=== PATIENT | female | born 1995 | race Caucasian/White ===

== ENCOUNTER 2019-11-26 09:06 | Outpatient (CLI) | payer BC, OTHER | END 2019-11-26 23:59 | disposition home or self-care (01) | LOC: STAR 09:06 | PROVIDERS: ATTEND Obstetrics & Gynecology | DX: Z01.812 Encounter for preprocedural laboratory examination (principal); Z20.828 Contact with and (suspected) exposure to other viral communicable diseases | CPT/HCPCS: 36415; 87635 ==

== ENCOUNTER 2019-12-03 16:25 | Inpatient (IN) | payer BC, OTHER ==
[~2019-12-03] VITALS: Ht 160 cm; Wt 70.9 kg
[2019-12-04] MEDS ORDERED: OXYTOCIN 30U/ 0.9% NaCL 500ML 500 ML ONE (21:43)
[2019-12-04] MEDS ORDERED: LIDOCAINE 1%, 20ML ONE (21:44)
[2019-12-04] MEDS ORDERED: MISOPROSTOL 200 MCG TABLET ONE (21:45)
[2019-12-04] MEDS ORDERED: NEWBORN KIT ONE (21:45)
[2019-12-04] MEDS ORDERED: OXYTOCIN 30U/ 0.9% NaCL 500ML 500 ML IV PRN (21:55)
[2019-12-04] MEDS ORDERED: OXYTOCIN 30U/ 0.9% NaCL 500ML 500 ML IV ONE (21:55)
[2019-12-04] MEDS ORDERED: FENTANYL PF 100 MCG/2ML IVPush PRN (22:00)
[2019-12-04] MEDS ORDERED: SODIUM CITRATE/CITRIC ACID 30 ML UDC PO PRN (22:00)
[2019-12-04] MEDS ORDERED: SODIUM CHLORIDE FLUSH 10ML SYR IVF PRN (22:00)
[2019-12-04] MEDS ORDERED: TERBUTALINE 1 MG/ML, 1ML IVPush PRN (22:00)
[2019-12-04] MEDS ORDERED: MISOPROSTOL 25 MCG TABLET VG PRN (22:00)
[2019-12-04] MEDS ORDERED: ONDANSETRON 2MG/ML, 2ML IVPush PRN (22:00)
[2019-12-04] MEDS ORDERED: TERBUTALINE 1 MG/ML, 1ML SQ PRN (22:00)
[2019-12-04] MEDS ORDERED: ALUMINUM/MAG/SIMETHICONE 30 ML UDC PO PRN (22:00)
[2019-12-04] MEDS ORDERED: FENTANYL PF 100 MCG/2ML IV PRN (22:00)
[2019-12-04] MEDS ORDERED: METOCLOPRAMIDE 5 MG/ML, 2ML IVPush PRN (22:00)
[2019-12-04] MEDS ORDERED: PLEASE ENTER ALLERGIES MC SCH (22:30)
[2019-12-04] MEDS ORDERED: PLEASE ENTER HEIGHT AND WEIGHT MC SCH (22:30)
[2019-12-04 22:33] LABS: MEAN CORPUSCULAR HEMOGLOBIN 30.9 pg (27.0-34.8); MEAN CORPUSCULAR HGB CONC 32.7 g/dL (32.4-35.8); MEAN CORPUSCULAR VOLUME 94.7 fL (80-100); MEAN PLATELET VOLUME 8.7 fL (7.4-10.4); PLATELET COUNT 227 x10^3/uL (130-400); RED BLOOD COUNT 4.39 x10^6/uL (3.82-5.3); RED CELL DISTRIBUTION WIDTH 14.4 % (9.6-15.2)
[2019-12-04] MEDS ORDERED: PREN-1 PO (22:38)
[2019-12-04 22:58] LABS: BASOPHILS # (AUTO) 0.05 x10^3/uL (0-0.1); BASOPHILS % (AUTO) 0 % (0-1); EOSINOPHILS # (AUTO) 0.03 x10^3/uL (0-0.4); EOSINOPHILS % (AUTO) 0 % (1-7); LYMPHOCYTES % (AUTO) 18 % (22-44); MD SCAN; MONOCYTES # (AUTO) 1.41 x10^3/uL (0.2-0.8); MONOCYTES % (AUTO) 10 % (2-9); NEUTROPHILS # (AUTO) 10.28 x10^3/uL (1.8-6.8); NEUTROPHILS % (AUTO) 72 % (42-75)
[2019-12-04] MEDS ORDERED: MISOPROSTOL 25 MCG TABLET ONE (23:04)
[2019-12-05] MEDS ORDERED: MISOPROSTOL 25 MCG TABLET ONE (07:40)
[2019-12-05] MEDS ORDERED: MISOPROSTOL 200 MCG TABLET ONE (07:40)
[2019-12-05] MEDS ORDERED: FENTANYL PF 100 MCG/2ML ONE (10:57)
[2019-12-05] MEDS ORDERED: FENTANYL/BUPIV./NS/PF 250 ML EPIDCONT SCH (11:19)
[2019-12-05] MEDS ORDERED: NALOXONE 0.4 MG/ML, 1ML IVPush PRN (11:30)
[2019-12-05] MEDS ORDERED: EPHEDRINE 50 MG/ML, 1ML IVPush PRN (11:30)
[2019-12-05] MEDS ORDERED: LACTATED RINGERS 1,000 ML IVBOLUS PRN (11:30)
[2019-12-05] MEDS ORDERED: FENTANYL/BUPIV./NS/PF 250 ML EPIDCONT ONE (11:43)
[2019-12-05] MEDS ORDERED: LIDOCAINE/PF 1.5% EPI 1:200K, 10 ML ONE (11:44)
[2019-12-05] MEDS ORDERED: BUPIVACAINE 0.25% ONE (11:44)
[2019-12-05] MEDS: LACTATED RINGERS 1,000 ML IV SCH ×2 (12:50→15:44)
[2019-12-05] MEDS ORDERED: OXYTOCIN 30U/ 0.9% NaCL 500ML 500 ML ONE (13:23)
[2019-12-05] MEDS ORDERED: OXYTOCIN 30U/ 0.9% NaCL 500ML 500 ML IV PRN (13:26)
[2019-12-05] MEDS ORDERED: EPINEPHRINE 1 MG/ML, 1ML ONE (19:02)
[2019-12-06] MEDS ORDERED: METOCLOPRAMIDE 5 MG/ML, 2ML ONE (07:03)
[2019-12-06] MEDS ORDERED: DIPHENHYDRAMINE 50 MG/ML, 1ML ONE (07:30)
[2019-12-06] MEDS ORDERED: DIPHENHYDRAMINE 50 MG/ML, 1ML IVPush ONE (07:30)
[2019-12-06] MEDS: LACTATED RINGERS 1,000 ML IV SCH ×5 (07:44→22:23)
[2019-12-06] MEDS ORDERED: ACETAMINOPHEN 500 MG TABLET ONE (09:48)
[2019-12-06] MEDS ORDERED: ACETAMINOPHEN 500 MG TABLET PO ONE (10:00)
[2019-12-06] MEDS ORDERED: AZITHROMYCIN 500 MG in SODIUM CHLORIDE 0.9% 250 ML IV ONE (10:00)
[2019-12-06] MEDS ORDERED: AMPICILLIN 2 GM in SODIUM CHLORIDE 0.9% 100 ML IV SCH (10:00)
[2019-12-06] MEDS ORDERED: LACTATED RINGERS 1,000 ML IVBOLUS ONE (11:00)
[2019-12-06] MEDS ORDERED: BUPIVACAINE/PF 0.25% ONE ×3 (11:02→11:59)
[2019-12-06] MEDS ORDERED: FENTANYL PF 100 MCG/2ML ONE (11:02)
[2019-12-06] MEDS ORDERED: BUPIVACAINE 0.25% ONE (11:04)
[2019-12-06] MEDS ORDERED: morphine SULFATE/PF 0.5 MG/ML, 10ML ONE (11:56)
[2019-12-06] MEDS ORDERED: LIDOCAINE-MPF 2% ,5ML ONE (11:59)
[2019-12-06] MEDS ORDERED: CEFAZOLIN 1,000 MG ONE (11:59)
[2019-12-06] MEDS ORDERED: EPHEDRINE 50 MG/ML, 1ML ONE (11:59)
[2019-12-06] MEDS ORDERED: OXYTOCIN 10 UNITS/ML, 1ML ONE (11:59)
[2019-12-06] MEDS ORDERED: PHENYLEPHRINE 10 MG/ML ONE (11:59)
[2019-12-06] MEDS ORDERED: WATER-INJECTION,STERILE 10 ML IV ONE (11:59)
[2019-12-06] MEDS: OXYTOCIN 30U/ 0.9% NaCL 500ML 500 ML IV SCH ×2 (12:23→22:23)
[2019-12-06] MEDS ORDERED: OXYcodone/APAP 5/325MG TABLET PO PRN (12:30)
[2019-12-06] MEDS ORDERED: IBUPROFEN 600 MG TABLET PO PRN (12:30)
[2019-12-06] MEDS ORDERED: ONDANSETRON 2MG/ML, 2ML IV PRN (12:30)
[2019-12-06] MEDS ORDERED: ACETAMINOPHEN 325 MG TABLET PO PRN (12:30)
[2019-12-06] MEDS ORDERED: MISOPROSTOL 200 MCG TABLET PR PRN (12:30)
[2019-12-06] MEDS ORDERED: SIMETHICONE 80 MG CHEW TAB PO PRN (12:30)
[2019-12-06] MEDS ORDERED: DOCUSATE 100 MG CAPSULE PO PRN (12:30)
[2019-12-06] MEDS ORDERED: MORPHINE SULFATE 4 MG/ML, 1ML IVPush PRN (12:30)
[2019-12-06] MEDS ORDERED: GENTAMICIN 0 MG in SODIUM CHLORIDE 0.9% 100 ML IV SCH (13:00)
[2019-12-06] MEDS ORDERED: GENTAMICIN PER PHARMACY MC PRN (13:00)
[2019-12-06] MEDS ORDERED: PHARMACOKINETIC CONSULTATION MC ONE (13:00)
[2019-12-06] MEDS ORDERED: PHARMACOKINETIC MONITORING MC PRN (13:00)
[2019-12-06] MEDS ORDERED: OXYcodone 5 MG/5 ML ORAL.SOL UDC PO PRN (13:00)
[2019-12-06] MEDS ORDERED: CLINDAMYCIN PMX 900MG/50ML 50 ML IVPB SCH (13:00)
[2019-12-06] MEDS ORDERED: KETOROLAC 30 MG/1 ML ONE (13:04)
[2019-12-06] MEDS ORDERED: OXYcodone 5 MG/5 ML ORAL.SOL UDC ONE (13:05)
[2019-12-06] MEDS: KETOROLAC 30 MG/1 ML IV SCH ×2 (13:07→19:09)
[2019-12-06] MEDS ORDERED: HYDROmorphone 2 MG/ML, 1ML ONE (13:27)
[2019-12-06] MEDS: HYDROmorphone 1 MG/ML, 1ML INJ IV PRN ×3 (13:29→14:15)
[2019-12-06] MEDS: GENTAMICIN 320 MG in SODIUM CHLORIDE 0.9% 100 ML IV SCH (13:37)
[2019-12-06 14:40] VITALS: BP 106/65
[2019-12-06] MEDS ORDERED: CLINDAMYCIN 150 MG/ML, 6ML IV SCH (15:00)
[2019-12-06] MEDS: CLINDAMYCIN PMX 900MG/50ML 50 ML IVPB SCH ×2 (15:47→23:42)
[2019-12-06 20:00] VITALS: BP 94/54
[2019-12-06 20:27] LABS: MEAN CORPUSCULAR HEMOGLOBIN 30.7 pg (27.0-34.8); MEAN CORPUSCULAR HGB CONC 32.1 g/dL (32.4-35.8); MEAN CORPUSCULAR VOLUME 95.6 fL (80-100); MEAN PLATELET VOLUME 9.2 fL (7.4-10.4); PLATELET COUNT 193 x10^3/uL (130-400); RED BLOOD COUNT 3.65 x10^6/uL (3.82-5.3); RED CELL DISTRIBUTION WIDTH 14.4 % (9.6-15.2)
[2019-12-06 21:15] LABS: BASOPHILS # (AUTO) 0.01 x10^3/uL (0-0.1); BASOPHILS % (AUTO) 0 % (0-1); EOSINOPHILS # (AUTO) 0.01 x10^3/uL (0-0.4); EOSINOPHILS % (AUTO) 0 % (1-7); LYMPHOCYTES # (AUTO) 1.55 x10^3/uL (1-3.4); LYMPHOCYTES % (AUTO) 7 % (22-44); MD SCAN; MONOCYTES % (AUTO) 5 % (2-9); NEUTROPHILS # (AUTO) 19.61 x10^3/uL (1.8-6.8); NEUTROPHILS % (AUTO) 88 % (42-75)
[2019-12-06] MEDS: OXYcodone IR 5MG TABLET PO PRN (22:58)
[2019-12-06 23:53] VITALS: BP 93/56
[2019-12-07] MEDS: KETOROLAC 30 MG/1 ML IV SCH ×5 (00:42→23:50)
[2019-12-07] MEDS: LACTATED RINGERS 1,000 ML IV SCH ×5 (03:42→20:23)
[2019-12-07 03:46] VITALS: BP 95/55
[2019-12-07] MEDS: CLINDAMYCIN PMX 900MG/50ML 50 ML IVPB SCH ×3 (07:32→23:50)
[2019-12-07 08:00] VITALS: BP 96/58
[2019-12-07] MEDS: OXYTOCIN 30U/ 0.9% NaCL 500ML 500 ML IV SCH ×2 (08:23→18:23)
[2019-12-07] MEDS: PRENATAL VIT/IRON/FA 1 EACH TABLET PO SCH (10:52)
[2019-12-07] MEDS: OXYcodone IR 5MG TABLET PO PRN ×4 (10:52→23:50)
[2019-12-07 12:00] VITALS: BP 99/63
[2019-12-07] MEDS: GENTAMICIN 320 MG in SODIUM CHLORIDE 0.9% 100 ML IV SCH (14:00)
[2019-12-07 20:07] VITALS: BP 100/62
[2019-12-08] MEDS: OXYTOCIN 30U/ 0.9% NaCL 500ML 500 ML IV SCH (04:23)
[2019-12-08] MEDS: LACTATED RINGERS 1,000 ML IV SCH ×2 (04:23)
[2019-12-08] MEDS: KETOROLAC 30 MG/1 ML IV SCH (06:13)
[2019-12-08] MEDS: PRENATAL VIT/IRON/FA 1 EACH TABLET PO SCH (07:47)
[2019-12-08] MEDS: CLINDAMYCIN PMX 900MG/50ML 50 ML IVPB SCH (07:48)
[2019-12-08] MEDS: OXYcodone IR 5MG TABLET PO PRN (07:48)
[2019-12-08 07:53] VITALS: BP 89/53
[2019-12-08] MEDS ORDERED: OXYC-302 PO (10:29)
[2019-12-08] MEDS ORDERED: IBUP-1222 PO (10:29)
== END 2019-12-08 11:28 | disposition home or self-care (01) | DRG 788 ==
LOC: EDIP 12-04 21:05 → LDIP 12-04 21:23 → 2NW 12-06 14:18
PROVIDERS: ADMIT Student in an Organized Health Care Education/Training Program; ATTEND Student in an Organized Health Care Education/Training Program
PROC: 10D00Z1 Extraction of Products of Conception, Low, Open Approach (ICD-10-PCS; principal; 2019-12-06)
DX: O69.81X0 Labor and delivery complicated by cord around neck, without compression, not applicable or unspecified (principal); O62.0 Primary inadequate contractions; Z37.0 Single live birth; Z3A.40 40 weeks gestation of pregnancy; Z87.891 Personal history of nicotine dependence
CPT/HCPCS: 36415; J3490; 85025; 86592; 86850; 86900; G0378; J0290; J0690; J1170; J1885; J2274; J3010; J1200; J1580; J2370; J2590; J2765; J7120